=== PATIENT | male | born 1945 | race Caucasian/White ===

== ENCOUNTER → 2016-07-29 | Outpatient (REF) | payer MEDICARE, BC, OTHER ==
[2016-07-29 19:31] LABS: BASO # 0.1 K/mm3 (0.0-0.2); BASO % 1.6 % (0.0-1.0); EOS # 0.2 K/mm3 (0.0-0.50); EOS % 2.3 % (0.0-3.0); LARGE UNSTAINED CELL # 0.3 K/mm3 (0.0-0.4); LARGE UNSTAINED CELL % 4.2 % (0.0-4.0); LYMPH # 1.9 K/mm3 (1.5-4.5); LYMPH % 25.3 % (24.0-44.0); MEAN CORPUSCULAR HEMOGLOBIN 29.9 pg (27.0-33.0); MEAN CORPUSCULAR HGB CONC 31.5 g/dl (32.0-36.5); MEAN CORPUSCULAR VOLUME 94.8 fl (80.0-96.0); MONO # 0.6 K/mm3 (0.0-0.8); MONO % 9.2 % (0.0-5.0); NEUTROPHILS # 3.7 K/mm3 (1.8-7.7); NEUTROPHILS % 57.4 % (36.0-66.0); PLATELET COUNT, AUTOMATED 252 k/mm3 (150-450); RED CELL DISTRIBUTION WIDTH 14.6 % (11.5-14.5); WHITE BLOOD COUNT 6.5 K/mm3 (4.0-10.0)
[2016-07-29 19:53] LABS: CALCIUM LEVEL 8.9 MG/DL (8.8-10.2); CREATININE FOR GFR 1.3 MG/DL (0.70-1.30); GLOMERULAR FILTRATION RATE 58.1 (>42); MAGNESIUM LEVEL 2.2 MG/DL (1.8-2.4); POTASSIUM SERUM 4.5 MEQ/L (3.5-5.1); URIC ACID 4.7 MG/DL (3.5-7.2)
== END ==
LOC: M SFHCPLAZ 15:29
PROVIDERS: ATTEND Family Medicine
DX: N18.2 Chronic kidney disease, stage 2 (mild) (principal); R35.0 Frequency of micturition; E79.0 Hyperuricemia without signs of inflammatory arthritis and tophaceous disease; Z94.1 Heart transplant status

== ENCOUNTER → 2016-07-29 | Outpatient (CLI) | payer MEDICARE, BC, OTHER ==
--- NOTE | 2016-07-29 17:09 | REP ---
CHEST, TWO VIEWS: Two views of the chest are performed. There are no prior studies for comparison. There is mild cardiomegaly. There is mild bibasilar fibrotic change. No consolidating infiltrate is seen. There is mild calcification of the thoracic aorta. The mediastinal silhouette is unremarkable. Multiple sternal wires are preset. There is a left dual lead pacemaker present. There is metallic hardware in the lower cervical spine which is partially visualized. There are mild degenerative changes of the spine. IMPRESSION: Mild cardiomegaly and chronic lung findings. No evidence of acute pulmonary disease. Signed by Enzo Benson MD 07/30/2016 02:00 P
== END ==
LOC: M RAD 16:24
DX: E79.0 Hyperuricemia without signs of inflammatory arthritis and tophaceous disease (principal); M13.0 Polyarthritis, unspecified; N18.2 Chronic kidney disease, stage 2 (mild); R35.0 Frequency of micturition; Z94.1 Heart transplant status
CPT/HCPCS: 36415; 71020; 80048; 80061; 80195; 80197; 81001; 82043; 83735; 84550; 85025; 87497; 93005; G0103; G0463

== ENCOUNTER → 2016-08-26 | Outpatient (REF) | payer MEDICARE, BC, OTHER | LOC: M SFHCPLAZ 08:46 | PROVIDERS: ATTEND Family Medicine | DX: M13.0 Polyarthritis, unspecified (principal) ==

== ENCOUNTER → 2016-08-26 | Outpatient (CLI) | payer MEDICARE, BC, OTHER ==
--- NOTE | 2016-08-26 10:28 | REP ---
LEFT HAND, TWO VIEWS: HISTORY: Thumb pain. There is no acute fracture or dislocation. There is narrowing of the first carpometacarpal joint space with associated sclerosis. There is narrowing of the intermediate and distal interphalangeal joint spaces. IMPRESSION: Degenerative change as described above. Signed by Junior Barton MD 08/26/2016 10:45 A
--- NOTE | 2016-08-26 10:38 | REP ---
LEFT ANKLE, TWO VIEWS: HISTORY: Pain There are old healed fractures of the distal tibia and fibula. There is no acute fracture or dislocation. There is narrowing of the joint space with associated sclerosis. A calcified density is present adjacent to the medial malleolus. This represents ligamentous or tendon calcification or an old avulsion fracture fragment. IMPRESSION: Degenerative change as described above. Signed by Junior Barton MD 08/26/2016 10:46 A
== END ==
LOC: M RAD 09:39
PROVIDERS: ATTEND Family Medicine
DX: M19.072 Primary osteoarthritis, left ankle and foot (principal); M18.12 Unilateral primary osteoarthritis of first carpometacarpal joint, left hand
CPT/HCPCS: 36415; 73120; 73600; 85652; 86140; 86431; G0463

== ENCOUNTER → 2017-01-13 | Outpatient (REF) | payer MEDICARE, BC, OTHER | LOC: M SFHCPLAZ 08:35 | PROVIDERS: ATTEND Family Medicine | DX: E78.2 Mixed hyperlipidemia (principal) | CPT/HCPCS: 80061; G0463 ==

== ENCOUNTER → 2017-10-28 | Outpatient (REF) | payer MEDICARE, BC, OTHER ==
[2017-10-28 11:47] LABS: NT-PRO BNP 173 PG/ML (<125)
== END ==
LOC: M SFHCPLAZ 08:43
DX: R60.0 Localized edema (principal)
CPT/HCPCS: 84443

== ENCOUNTER → 2017-12-22 | Outpatient (REF) | payer MEDICARE, BC, OTHER ==
[2017-12-22 13:27] LABS: ALBUMIN 3.8 GM/DL (3.2-5.2); ALBUMIN/GLOBULIN RATIO 1.12 (1.00-1.93); ALKALINE PHOSPHATASE 74 U/L (45-117); ALT/SGPT 28 U/L (12-78); ANION GAP 8 MEQ/L (8-16); AST/SGOT 39 U/L (7-37); BILIRUBIN,TOTAL 0.4 MG/DL (0.2-1.0); BLOOD UREA NITROGEN 29 MG/DL (7-18); CALCIUM LEVEL 8.5 MG/DL (8.8-10.2); CARBON DIOXIDE LEVEL 27 MEQ/L (21-32); CHLORIDE LEVEL 110 MEQ/L (98-107); CHOLESTEROL LEVEL 172 MG/DL (<200); CREATININE FOR GFR 1.56 MG/DL (0.70-1.30); GLOMERULAR FILTRATION RATE 46.9 (>42); GLUCOSE, FASTING 92 MG/DL (70-100); HDL CHOLESTEROL 63 MG/DL (>40); MAGNESIUM LEVEL 2.2 MG/DL (1.8-2.4); NON-HDL-C 109 MG/DL; POTASSIUM SERUM 4.9 MEQ/L (3.5-5.1); SODIUM LEVEL 145 MEQ/L (136-145); TOTAL PROTEIN 7.2 GM/DL (6.4-8.2); TRIGLYCERIDES LEVEL 65 MG/DL (<150)
[2017-12-22 13:30] LABS: BASO % 0.5 % (0.0-1.0); EOS # 0.2 10^3/uL (0.0-0.50); EOS % 2.9 % (0.0-3.0); HEMATOCRIT 40.7 % (42.0-52.0); HEMOGLOBIN 12.7 g/dl (13.5-17.5); IMMATURE GRANULOCYTE % 0.3 % (0-3.0); LYMPH # 1.8 10^3/uL (1.5-4.5); LYMPH % 22.9 % (24.0-44.0); MEAN CORPUSCULAR HEMOGLOBIN 29.3 pg (27.0-33.0); MEAN CORPUSCULAR HGB CONC 31.2 g/dl (32.0-36.5); MEAN CORPUSCULAR VOLUME 93.8 fl (80.0-96.0); MONO # 1.1 10^3/uL (0.0-0.8); MONO % 14.3 % (0.0-5.0); NEUTROPHILS # 4.5 10^3/uL (1.8-7.7); NEUTROPHILS % 59.1 % (36.0-66.0); PLATELET COUNT, AUTOMATED 293 10^3/uL (150-450); RED BLOOD COUNT 4.34 10^6/uL (4.30-6.10); RED CELL DISTRIBUTION WIDTH 13.2 % (11.5-14.5); WHITE BLOOD COUNT 7.7 10^3/uL (4.0-10.0)
[2017-12-24 14:47] LABS: CMV QUANT DNA PCR, URINE Negative copies/mL (Negative); FK 506 (TACROLIMUS) LABCORP 3.2 ng/mL (2.0-20.0)
== END ==
LOC: M SFHCPLAZ 08:48
DX: Z94.1 Heart transplant status (principal); R60.0 Localized edema; R25.2 Cramp and spasm; Z79.899 Other long term (current) drug therapy
CPT/HCPCS: 83735

== ENCOUNTER → 2017-12-30 | Outpatient (CLI) | payer MEDICARE, BC, OTHER | LOC: M RAD 07:20 | DX: R60.0 Localized edema (principal) | CPT/HCPCS: 93970 ==

== ENCOUNTER 2018-01-13 08:45 | Outpatient (RCR) | payer MEDICARE, BC, OTHER | END 2018-01-27 | LOC: M PT 08:45 | DX: Z51.89 Encounter for other specified aftercare (principal); I87.2 Venous insufficiency (chronic) (peripheral) | CPT/HCPCS: 97163 ==

== ENCOUNTER → 2018-01-14 | Outpatient (REF) | payer MEDICARE, BC, OTHER ==
[2018-01-14 19:30] LABS: RETIC HEMOGLOBIN EQUIVALENT 32.8 pg (24-36); RETICULOCYTE # 51.8 10^9/L (17-77); RETICULOCYTE % 1.2 % (0.5-1.5)
[2018-01-14 19:48] LABS: APPEARANCE, URINE CLEAR (CLEAR); BACTERIA, URINE AUTO NEGATIVE (NEGATIVE); BILIRUBIN, URINE AUTO NEGATIVE (NEGATIVE); BLOOD, URINE BLOOD NEGATIVE (NEGATIVE); COLOR, URINE STRAW (YELLOW); GLUCOSE, URINE (UA) AUTO NEGATIVE (NEGATIVE); KETONE, URINE AUTO NEGATIVE (NEGATIVE); LEUKOCYTE ESTERASE, URINE AUTO NEGATIVE (NEGATIVE); MUCUS, URINE SMALL (NEGATIVE); NITRITE, URINE AUTO NEGATIVE (NEGATIVE); PROTEIN, URINE AUTO NEGATIVE (NEGATIVE); RBC, URINE AUTO 1 /HPF (0-3); SPECIFIC GRAVITY URINE AUTO 1.006 (1.002-1.035); SQUAMOUS EPITHELIAL CELL UR AU 0 /HPF (0-6); UROBILINOGEN, URINE AUTO 0.2 mg/dL (0.0-2.0); WBC, URINE AUTO 0 /HPF (0-3)
[2018-01-14 19:54] LABS: FERRITIN 110 NG/ML (26-388); IRON (FE) 74 UG/DL (65-175); PERCENT SATURATION 29.7 % (19.7-50.0); TOTAL IRON BINDING CAPACITY 249 UG/DL (250-450)
[2018-01-14 19:54] LABS: ALBUMIN 3.9 GM/DL (3.2-5.2)
[2018-01-16 09:02] LABS: TRANSFERRIN 195 mg/dL (200-370)
== END ==
LOC: M SFHCPLAZ 15:40
DX: R60.0 Localized edema (principal); D64.9 Anemia, unspecified
CPT/HCPCS: 82040

== ENCOUNTER → 2018-02-10 | Outpatient (REF) | payer MEDICARE, BC, OTHER ==
[2018-02-10 13:38] LABS: D-DIMER QUANT 1174.1 ng/ml (<500)
[2018-02-10 13:49] LABS: ANION GAP 7 MEQ/L (8-16); BLOOD UREA NITROGEN 28 MG/DL (7-18); C REACTIVE PROTEIN QUANTITATIV 0.45 MG/DL (0.00-0.30); CALCIUM LEVEL 9.1 MG/DL (8.8-10.2); CARBON DIOXIDE LEVEL 29 MEQ/L (21-32); CHLORIDE LEVEL 106 MEQ/L (98-107); CREATININE FOR GFR 1.42 MG/DL (0.70-1.30); GLOMERULAR FILTRATION RATE 52.3 (>42); GLUCOSE, FASTING 91 MG/DL (70-100); POTASSIUM SERUM 4.3 MEQ/L (3.5-5.1); SODIUM LEVEL 142 MEQ/L (136-145)
[2018-02-10 14:28] LABS: ERYTHROCYTE SEDIMENTATION RATE 22 mm/hr (0-20)
== END ==
LOC: M SFHCPLAZ 11:32
DX: M13.0 Polyarthritis, unspecified (principal); R60.0 Localized edema
CPT/HCPCS: 80048

== ENCOUNTER → 2018-02-11 | Outpatient (CLI) | payer MEDICARE, BC, OTHER | LOC: M RAD 12:06 | DX: R60.0 Localized edema (principal) | CPT/HCPCS: 93970 ==

== ENCOUNTER → 2018-04-15 | Outpatient (REF) | payer MEDICARE, BC, OTHER ==
[2018-04-15 16:29] LABS: ANION GAP 2 MEQ/L (8-16); BLOOD UREA NITROGEN 19 MG/DL (7-18); CALCIUM LEVEL 9.1 MG/DL (8.8-10.2); CARBON DIOXIDE LEVEL 35 MEQ/L (21-32); CHLORIDE LEVEL 107 MEQ/L (98-107); CREATININE FOR GFR 1.35 MG/DL (0.70-1.30); GLOMERULAR FILTRATION RATE 55.5 (>42); GLUCOSE, FASTING 86 MG/DL (70-100); POTASSIUM SERUM 4.6 MEQ/L (3.5-5.1); SODIUM LEVEL 144 MEQ/L (136-145)
== END ==
LOC: M SFHCPLAZ 12:40
DX: R60.0 Localized edema (principal)
CPT/HCPCS: 80048

== ENCOUNTER → 2018-04-15 | Outpatient (CLI) | payer MEDICARE, BC, OTHER | LOC: M RAD 13:23 | DX: R51 Headache (principal) | CPT/HCPCS: 72040 ==

== ENCOUNTER → 2018-05-11 | Outpatient (REF) | payer MEDICARE, BC, OTHER | LOC: M SFHCLERA 15:23 | DX: M13.0 Polyarthritis, unspecified (principal); M15.0 Primary generalized (osteo)arthritis; Z53.8 Procedure and treatment not carried out for other reasons ==

== ENCOUNTER → 2018-05-13 | Outpatient (REF) | payer MEDICARE, BC, OTHER ==
[2018-05-13 16:47] LABS: C REACTIVE PROTEIN QUANTITATIV 1.13 MG/DL (0.00-0.30)
[2018-05-13 16:47] LABS: URIC ACID 4.5 MG/DL (3.5-7.2)
[2018-05-13 16:49] LABS: BASO % 0.4 % (0.0-1.0); EOS # 0.2 10^3/uL (0.0-0.50); EOS % 2.3 % (0.0-3.0); HEMATOCRIT 44.1 % (42.0-52.0); HEMOGLOBIN 13.8 g/dl (13.5-17.5); IMMATURE GRANULOCYTE % 0.3 % (0-3.0); LYMPH % 27.4 % (24.0-44.0); MEAN CORPUSCULAR HEMOGLOBIN 29.9 pg (27.0-33.0); MEAN CORPUSCULAR HGB CONC 31.3 g/dl (32.0-36.5); MEAN CORPUSCULAR VOLUME 95.7 fl (80.0-96.0); MONO # 0.7 10^3/uL (0.0-0.8); MONO % 9.3 % (0.0-5.0); NEUTROPHILS # 4.4 10^3/uL (1.8-7.7); NEUTROPHILS % 60.3 % (36.0-66.0); PLATELET COUNT, AUTOMATED 238 10^3/uL (150-450); RED BLOOD COUNT 4.61 10^6/uL (4.30-6.10); RED CELL DISTRIBUTION WIDTH 14.6 % (11.5-14.5); WHITE BLOOD COUNT 7.3 10^3/uL (4.0-10.0)
[2018-05-13 17:21] LABS: APPEARANCE, URINE HAZY (CLEAR); BACTERIA, URINE AUTO NEGATIVE (NEGATIVE); BILIRUBIN, URINE AUTO NEGATIVE (NEGATIVE); BLOOD, URINE BLOOD NEGATIVE (NEGATIVE); COLOR, URINE YELLOW (YELLOW); GLUCOSE, URINE (UA) AUTO NEGATIVE (NEGATIVE); KETONE, URINE AUTO NEGATIVE (NEGATIVE); LEUKOCYTE ESTERASE, URINE AUTO NEGATIVE (NEGATIVE); MUCUS, URINE SMALL (NEGATIVE); NITRITE, URINE AUTO NEGATIVE (NEGATIVE); PROTEIN, URINE AUTO NEGATIVE (NEGATIVE); RBC, URINE AUTO 3 /HPF (0-3); SQUAMOUS EPITHELIAL CELL UR AU 1 /HPF (0-6); UROBILINOGEN, URINE AUTO 0.2 mg/dL (0.0-2.0); WBC, URINE AUTO 2 /HPF (0-3)
[2018-05-13 17:57] LABS: ERYTHROCYTE SEDIMENTATION RATE 9 mm/hr (0-20)
[2018-05-13 18:28] LABS: TOTAL PROTEIN,RANDOM URINE 42.3 MG/DL (0.0-12.0)
[2018-05-16 00:29] LABS: ANA (HEP2) Negative (.); ANTI DOUBLE STRAND-DNA AB 1 IU/mL (0-9); RNP ANTIBODY < 0.2 AI (0.0-0.9); SMITHS ANTIBODY < 0.2 AI (0.0-0.9); SSA SJOGRENS A <0.2 AI (0.0-0.9); SSB SJOGRENS B <0.2 AI (0.0-0.9)
[2018-05-16 00:29] LABS: CYCLIC CITRULLINATED PEPTIDE 10 units (0-19)
== END ==
LOC: M SFHCLERA 09:56 → M SFHCCLAY 09:59
DX: M13.0 Polyarthritis, unspecified (principal); M15.0 Primary generalized (osteo)arthritis

== ENCOUNTER → 2018-05-13 | Outpatient (CLI) | payer MEDICARE, BC, OTHER | LOC: M CLY 10:08 | DX: M19.041 Primary osteoarthritis, right hand (principal); M17.0 Bilateral primary osteoarthritis of knee; Z79.899 Other long term (current) drug therapy | CPT/HCPCS: 84550 ==

== ENCOUNTER → 2018-07-30 | Outpatient (REF) | payer MEDICARE, BC, OTHER ==
[2018-07-30 11:56] LABS: BLOOD UREA NITROGEN 34 MG/DL (7-18); C REACTIVE PROTEIN QUANTITATIV < 0.30 MG/DL (0.00-0.30); CALCIUM LEVEL 8.8 MG/DL (8.8-10.2); CARBON DIOXIDE LEVEL 30 MEQ/L (21-32); CHLORIDE LEVEL 106 MEQ/L (98-107); CHOLESTEROL LEVEL 190 MG/DL (<200); CHOLESTEROL RISK RATIO 3.584 (<5); CREATININE FOR GFR 1.93 MG/DL (0.70-1.30); GLOMERULAR FILTRATION RATE 36.6 (>42); GLUCOSE, FASTING 93 MG/DL (70-100); HDL CHOLESTEROL 53 MG/DL (>40); LDL CHOLESTEROL 112 MG/DL (<100); NON-HDL-C 137 MG/DL; POTASSIUM SERUM 4.1 MEQ/L (3.5-5.1); SODIUM LEVEL 141 MEQ/L (136-145); TRIGLYCERIDES LEVEL 123 MG/DL (<150); URIC ACID 5.5 MG/DL (3.5-7.2)
== END ==
LOC: M SFHCPLAZ 09:57
PROVIDERS: ATTEND Family Medicine
DX: M13.0 Polyarthritis, unspecified (principal); E78.2 Mixed hyperlipidemia; I10 Essential (primary) hypertension; M1A.09X0 Idiopathic chronic gout, multiple sites, without tophus (tophi)
CPT/HCPCS: 36415; 80048; 80061; 83520; 84550; 85652; 86140; G0463

== ENCOUNTER → 2018-10-06 | Outpatient (REF) | payer MEDICARE, BC, OTHER ==
[2018-10-06 15:57] LABS: BASO % 0.6 % (0.0-1.0); EOS # 0.2 10^3/uL (0.0-0.50); EOS % 2.6 % (0.0-3.0); HEMATOCRIT 40.1 % (42.0-52.0); HEMOGLOBIN 12.6 g/dl (13.5-17.5); LYMPH # 2.1 10^3/uL (1.5-4.5); LYMPH % 31.7 % (24.0-44.0); MEAN CORPUSCULAR HEMOGLOBIN 29.4 pg (27.0-33.0); MEAN CORPUSCULAR HGB CONC 31.4 g/dl (32.0-36.5); MEAN CORPUSCULAR VOLUME 93.7 fl (80.0-96.0); MONO % 14.5 % (0.0-5.0); NEUTROPHILS # 3.3 10^3/uL (1.8-7.7); NEUTROPHILS % 50.4 % (36.0-66.0); PLATELET COUNT, AUTOMATED 282 10^3/uL (150-450); RED BLOOD COUNT 4.28 10^6/uL (4.30-6.10); WHITE BLOOD COUNT 6.6 10^3/uL (4.0-10.0)
[2018-10-06 16:19] LABS: ERYTHROCYTE SEDIMENTATION RATE 8 mm/hr (0-20)
[2018-10-06 16:20] LABS: ALBUMIN 3.7 GM/DL (3.2-5.2); ALT/SGPT 28 U/L (12-78); BILIRUBIN,TOTAL 0.4 MG/DL (0.2-1.0); BLOOD UREA NITROGEN 32 MG/DL (7-18); C REACTIVE PROTEIN QUANTITATIV < 0.30 MG/DL (0.00-0.30); CALCIUM LEVEL 8.7 MG/DL (8.8-10.2); CARBON DIOXIDE LEVEL 26 MEQ/L (21-32); CHLORIDE LEVEL 110 MEQ/L (98-107); CREATININE FOR GFR 1.74 MG/DL (0.70-1.30); GLOMERULAR FILTRATION RATE 41.3 (>42); GLUCOSE, FASTING 90 MG/DL (70-100); POTASSIUM SERUM 4.8 MEQ/L (3.5-5.1); SODIUM LEVEL 141 MEQ/L (136-145); TOTAL PROTEIN 6.5 GM/DL (6.4-8.2); URIC ACID 5.9 MG/DL (3.5-7.2)
== END ==
LOC: M SFHCPLAZ 14:15
PROVIDERS: ATTEND Internal Medicine Rheumatology
DX: M1A.09X0 Idiopathic chronic gout, multiple sites, without tophus (tophi) (principal)

== ENCOUNTER → 2019-01-12 | Outpatient (REF) | payer MEDICARE, BC, OTHER ==
[2019-01-12 12:54] LABS: BASO # 0.1 10^3/uL (0.0-0.2); EOS # 0.3 10^3/uL (0.0-0.50); EOS % 5.5 % (0.0-3.0); HEMATOCRIT 38.9 % (42.0-52.0); HEMOGLOBIN 12.4 g/dl (13.5-17.5); LYMPH # 2.1 10^3/uL (1.5-4.5); LYMPH % 35.8 % (24.0-44.0); MEAN CORPUSCULAR HEMOGLOBIN 30.2 pg (27.0-33.0); MEAN CORPUSCULAR HGB CONC 31.9 g/dl (32.0-36.5); MEAN CORPUSCULAR VOLUME 94.9 fl (80.0-96.0); MONO # 0.8 10^3/uL (0.0-0.8); MONO % 13.1 % (0.0-5.0); NEUTROPHILS # 2.6 10^3/uL (1.8-7.7); NEUTROPHILS % 44.1 % (36.0-66.0); PLATELET COUNT, AUTOMATED 312 10^3/uL (150-450)
[2019-01-12 13:32] LABS: CALCIUM LEVEL 9.1 MG/DL (8.8-10.2); CHOLESTEROL RISK RATIO 3.862 (<5); CREATININE FOR GFR 1.37 MG/DL (0.70-1.30); FREE T4 1.16 NG/DL (0.76-1.46); GLOMERULAR FILTRATION RATE 54.4 (>42); POTASSIUM SERUM 4.5 MEQ/L (3.5-5.1); THYROID STIMULATING HORMONE 1.54 uIU/ML (0.358-3.740); TOTAL 25(OH) VITAMIN D 30.8 NG/ML (30.0-100.0); URIC ACID 6.6 MG/DL (3.5-7.2)
== END ==
LOC: M SFHCPLAZ 08:56
PROVIDERS: ATTEND Family Medicine
DX: R53.83 Other fatigue (principal); E78.2 Mixed hyperlipidemia; I10 Essential (primary) hypertension; M1A.09X0 Idiopathic chronic gout, multiple sites, without tophus (tophi); Z13.1 Encounter for screening for diabetes mellitus; Z12.5 Encounter for screening for malignant neoplasm of prostate; M13.0 Polyarthritis, unspecified
CPT/HCPCS: 36415; 80048; 80061; 82306; 82607; 83036; 84439; 84443; 84550; 85025; G0103

== ENCOUNTER → 2019-02-16 | Outpatient (REF) | payer MEDICARE, BC, OTHER ==
[2019-02-16 17:05] LABS: HCG, SERUM QUANTITATIVE < 1.0 MIU/ML
[2019-02-16 17:11] LABS: LUTEINIZING HORMONE 34.9 mIU/mL (3.1-34.6); TESTOSTERONE 223 NG/DL (241-827)
[2019-02-16 17:12] LABS: ESTRADIOL < 19.0 PG/ML (<39.8); FOLLICLE STIMULATING HORMONE 65.2 mIU/mL (1.4-18.1)
== END ==
LOC: M SFHCCLAY 11:01
PROVIDERS: ATTEND Family Medicine
DX: N64.4 Mastodynia (principal)

== ENCOUNTER → 2019-02-16 | Outpatient (REF) | payer MEDICARE, BC, OTHER ==
[2019-02-16 17:27] LABS: ALBUMIN 3.8 GM/DL (3.2-5.2); BILIRUBIN,TOTAL 0.4 MG/DL (0.2-1.0); CALCIUM LEVEL 8.9 MG/DL (8.8-10.2); CREATININE FOR GFR 1.52 MG/DL (0.70-1.30); GLOMERULAR FILTRATION RATE 48.2 (>42); MAGNESIUM LEVEL 2.3 MG/DL (1.8-2.4); POTASSIUM SERUM 4.4 MEQ/L (3.5-5.1); TOTAL PROTEIN 6.8 GM/DL (6.4-8.2)
[2019-02-16 17:28] LABS: BASO % 0.6 % (0.0-1.0); EOS # 0.3 10^3/uL (0.0-0.50); EOS % 3.9 % (0.0-3.0); HEMATOCRIT 39.5 % (42.0-52.0); HEMOGLOBIN 12.6 g/dl (13.5-17.5); LYMPH # 1.7 10^3/uL (1.5-4.5); MEAN CORPUSCULAR HEMOGLOBIN 30.6 pg (27.0-33.0); MEAN CORPUSCULAR HGB CONC 31.9 g/dl (32.0-36.5); MEAN CORPUSCULAR VOLUME 95.9 fl (80.0-96.0); MONO # 0.9 10^3/uL (0.0-0.8); MONO % 12.1 % (0.0-5.0); NEUTROPHILS # 4.2 10^3/uL (1.8-7.7); NEUTROPHILS % 59.1 % (36.0-66.0); PLATELET COUNT, AUTOMATED 269 10^3/uL (150-450); RED BLOOD COUNT 4.12 10^6/uL (4.30-6.10); WHITE BLOOD COUNT 7.2 10^3/uL (4.0-10.0)
[2019-02-21 00:06] LABS: CMV QUANT DNA PCR (PLASMA) Negative (Negative); SIROLIMUS (RAPAMUNE) LABCORP 8.3 ng/mL (3.0-20.0)
== END ==
LOC: M LABDRAWC 16:32
PROVIDERS: ATTEND Nurse Practitioner Adult Health
DX: T86.298 Other complications of heart transplant (principal); T86.23 Heart transplant infection; Z48.21 Encounter for aftercare following heart transplant; N64.4 Mastodynia

== ENCOUNTER → 2019-05-04 | Outpatient (REF) | payer MEDICARE, BC, OTHER | LOC: M LABDRAWC 11:04 | PROVIDERS: ATTEND Nurse Practitioner Adult Health | DX: Z94.1 Heart transplant status (principal); Z29.8 Encounter for other specified prophylactic measures ==

== ENCOUNTER → 2019-05-10 | Outpatient (REF) | payer MEDICARE, BC, OTHER | LOC: M LAB REF 18:49 | PROVIDERS: ATTEND Nurse Practitioner Adult Health | DX: Z29.8 Encounter for other specified prophylactic measures (principal); Z94.1 Heart transplant status ==

== ENCOUNTER → 2019-08-24 | Outpatient (REF) | payer MEDICARE, BC, OTHER ==
[2019-08-24 13:08] LABS: CALCIUM LEVEL 9.8 MG/DL (8.8-10.2); CREATININE FOR GFR 1.78 MG/DL (0.70-1.30); GLOMERULAR FILTRATION RATE 40.1 (>42); POTASSIUM SERUM 3.9 MEQ/L (3.5-5.1)
[2019-08-24 13:26] LABS: HEMOGLOBIN A1c 6.4 %
== END ==
LOC: M SFHCPLAZ 10:04
PROVIDERS: ATTEND Family Medicine
DX: I10 Essential (primary) hypertension (principal); R73.03 Prediabetes
CPT/HCPCS: 36415; 80048; 83036; G0463

== ENCOUNTER → 2020-01-25 | Outpatient (REF) | payer MEDICARE, BC, OTHER ==
[2020-03-31 12:14] LABS: SIROLIMUS (RAPAMUNE) LABCORP SEE SEPARATE REPORT
[2020-04-18 15:12] LABS: TRIGLYCERIDES LEVEL SEE SEPARATE REPORT MG/DL
== END ==
LOC: M LABDRAWC 17:04
PROVIDERS: ATTEND Family Medicine
DX: E78.2 Mixed hyperlipidemia (principal); Z51.81 Encounter for therapeutic drug level monitoring; R73.03 Prediabetes; I10 Essential (primary) hypertension

== ENCOUNTER → 2020-03-15 | Outpatient (REF) | payer MEDICARE, BC, OTHER | LOC: M LAB REF 19:16 | PROVIDERS: ATTEND Dermatology | DX: D04.4 Carcinoma in situ of skin of scalp and neck (principal) | CPT/HCPCS: 11102; 17000; 88305; 96574; J7308 ==

== ENCOUNTER → 2020-03-21 | Outpatient (REF) | payer MEDICARE, BC, OTHER ==
[2020-03-21 13:01] LABS: APPEARANCE, URINE CLEAR (CLEAR); BACTERIA, URINE AUTO NEGATIVE (NEGATIVE); BILIRUBIN, URINE AUTO NEGATIVE (NEGATIVE); BLOOD, URINE BLOOD NEGATIVE (NEGATIVE); COLOR, URINE YELLOW (YELLOW); GLUCOSE, URINE (UA) AUTO NEGATIVE (NEGATIVE); KETONE, URINE AUTO NEGATIVE (NEGATIVE); LEUKOCYTE ESTERASE, URINE AUTO NEGATIVE (NEGATIVE); NITRITE, URINE AUTO NEGATIVE (NEGATIVE); PROTEIN, URINE AUTO NEGATIVE (NEGATIVE); RBC, URINE AUTO 1 /HPF (0-3); SPECIFIC GRAVITY URINE AUTO 1.017 (1.002-1.035); SQUAMOUS EPITHELIAL CELL UR AU 0 /HPF (0-6); UROBILINOGEN, URINE AUTO 0.2 mg/dL (0.0-2.0); WBC, URINE AUTO 1 /HPF (0-3)
[2020-03-21 13:03] LABS: BASO # 0.1 10^3/uL (0.0-0.2); BASO % 0.9 % (0.0-1.0); EOS # 0.3 10^3/uL (0.0-0.5); EOS % 5.3 % (0.0-3.0); HEMATOCRIT 43.7 % (42.0-52.0); HEMOGLOBIN 13.7 g/dl (13.5-17.5); LYMPH # 1.9 10^3/uL (1.5-5.0); LYMPH % 28.7 % (24.0-44.0); MEAN CORPUSCULAR HEMOGLOBIN 29.8 pg (27.0-33.0); MEAN CORPUSCULAR HGB CONC 31.4 g/dl (32.0-36.5); NEUTROPHILS # 3.2 10^3/uL (1.5-8.5); NEUTROPHILS % 49.8 % (36.0-66.0); PLATELET COUNT, AUTOMATED 317 10^3/uL (150-450); WHITE BLOOD COUNT 6.5 10^3/uL (4.0-10.0)
[2020-03-21 13:12] LABS: ALBUMIN 3.7 GM/DL (3.2-5.2); BILIRUBIN,TOTAL 0.4 MG/DL (0.2-1.0); CALCIUM LEVEL 9.4 MG/DL (8.8-10.2); CHOLESTEROL RISK RATIO 4.226 (<5); CREATININE FOR GFR 1.47 MG/DL (0.70-1.30); MAGNESIUM LEVEL 2.1 MG/DL (1.8-2.4); POTASSIUM SERUM 4.4 MEQ/L (3.5-5.1); TOTAL PROTEIN 7.2 GM/DL (6.4-8.2)
[2020-03-21 13:43] LABS: MALB URINE SIEMENS 7.7 MG/L; MAU/CREAT RATIO 6.3 MCG/MG (0.0-30.0)
[2020-03-24 10:09] LABS: SIROLIMUS (RAPAMUNE) LABCORP 4.1 ng/mL (3.0-20.0)
[2020-03-24 13:12] LABS: CMV QUANT DNA PCR (PLASMA) Negative (Negative)
== END ==
LOC: M LABDRAWC 11:00
PROVIDERS: ATTEND Nurse Practitioner
DX: Z94.1 Heart transplant status (principal); I10 Essential (primary) hypertension

== ENCOUNTER → 2020-06-13 | Outpatient (CLI) | payer MEDICARE, BC, OTHER ==
--- NOTE | 2020-06-13 10:36 | DEXAMM ---
INDICATION: Z79.52 CURRENT CHRONIC USE OF SYSTEMIC STEROIDS. COMPARISON: None. TECHNIQUE: Bone density was measured using dual-energy x-ray absorptionmetry (DEXA). FINDINGS: AP SPINE L1-L4 BMD 1.564 g/cm2 Young Adult T-Score 3.0 Age Matched Z-Score 3.2. LT FEMUR, TOTAL BMD 0.900 g/cm2 Young Adult T-Score -0.9 Age Matched Z-Score -0.5. LT NECK BMD 0.843 g/cm2 Young Adult T-Score -1.4 Age Matched Z-Score -0.4. RT FEMUR, TOTAL BMD 0.877 g/cm2 Young Adult T-Score -1.0 Age Matched Z-Score -0.7. RT NECK BMD 0.791 g/cm2 Young Adult T-Score -1.8 Age Matched Z-Score -0.8. IMPRESSION: There is normal bone density of the spine. There is low bone density of the left hip. There is low bone density of the right hip. FOLLOW-UP: Recommendation for the next bone density exam: 2 years. <Electronically signed by Vahid Plaza > 06/13/20 [id number]
== END ==
LOC: M WHC 09:04
PROVIDERS: ATTEND Family Medicine
DX: M85.851 Other specified disorders of bone density and structure, right thigh (principal); M85.852 Other specified disorders of bone density and structure, left thigh; Z79.52 Long term (current) use of systemic steroids

== ENCOUNTER → 2020-06-20 | Outpatient (CLI) | payer MEDICARE, BC, OTHER ==
--- NOTE | 2020-06-20 14:02 | REP ---
INDICATION: MEL LEG PAIN COMPARISON: 12/30/2017. TECHNIQUE: Real time compression and duplex Doppler interrogation of the bilateral lower extremity deep venous system is performed. Evaluation for venous reflux is performed. FINDINGS: Bilaterally, the common femoral, superficial femoral and popliteal veins are fully compressible with transducer pressure and demonstrate normal spontaneous and phasic flow, without evidence of deep venous thrombosis. Patient states history of stripping of greater saphenous vein approximately 10 years ago. There is reflux throughout the deep vein system of the right lower extremity. There is no reflux in the lesser saphenous vein, which measures approximately 2 mm in diameter. On the left there is diffuse reflux throughout the deep vein system. There is an anterior accessory greater saphenous vein present with no reflux. There is reflux in the greater saphenous vein at the saphenofemoral junction with a duration of 6.6 seconds, AP diameter 5 mm, in the mid thigh for duration of 4.2 seconds with AP diameter 5 mm, as well as at the level of the knee with a duration of 5.1 seconds and AP diameter 4 mm. There is no reflux in the lesser saphenous vein which measures 2 mm. Two collateral venous structures are seen communicating with the mid greater saphenous vein in the thigh it. IMPRESSION: No evidence of deep venous thrombosis of the bilateral lower extremity femoral popliteal venous system. Bilateral deep vein reflux. There is left greater saphenous vein reflux as discussed above. <Electronically signed by Enzo Benson > 06/20/20 [id number]
--- NOTE | 2020-06-20 14:06 | REP ---
INDICATION: MEL LEG PAIN COMPARISON: None. TECHNIQUE: Real time benson scale and color Doppler evaluation of the bilateral lower extremity arterial vasculature using linear high frequency transducer. FINDINGS: Benson scale and color images demonstrate moderate to significant amounts of atheromatous plaquing with areas of minimal narrowing but no focal stenosis identified. Doppler interrogation to the right lower extremity demonstrates triphasic wave patterns with increased 2:1 velocity between the proximal and distal posterior tibial artery. Doppler interrogation to the left lower extremity demonstrates triphasic wave patterns with areas of monophasic wave patterns through the proximal anterior tibial artery, tibioperoneal trunk, and distal anterior tibial artery. Increased velocity through the left posterior tibial artery is appreciated without obvious focal area of stenosis. Peak systolic velocities (cm/sec) Common femoral artery: Right 87.7; Left 100.2 Profunda femoris: Right 46.3; Left 63.7 SFA (proximal): Right 76.4; Left 70.6 SFA (mid): Right 90.8; Left 80.5 SFA (distal): Right 112.5; Left 109.1 Popliteal artery: Right 81.0; Left 90.6 AMOL (prox.): Right 69.4; Left 68.3 Tibioperoneal trunk: Right 56.5; Left 71.7 [employer] (prox.): Right 63.0; Left 145.4 [employer] (distal): Right 125.1; Left 139.6 AMOL (distal): Right 95.2; Left 85.8 IMPRESSION: Moderate to significant areas of atheromatous plaquing primarily noted in the calf and distal vessels with areas of increased velocity but no discrete focal stenosis identified. <Electronically signed by Rolando Aguirre > 06/20/20 [id number]
== END ==
LOC: M RAD 09:24
PROVIDERS: ATTEND Physician Assistant
DX: I87.2 Venous insufficiency (chronic) (peripheral) (principal); I70.213 Atherosclerosis of native arteries of extremities with intermittent claudication, bilateral legs

== ENCOUNTER → 2020-06-27 | Outpatient (REF) | payer MEDICARE, BC, OTHER ==
[2020-06-27 12:17] LABS: HEMOGLOBIN A1c 5.9 %
[2020-06-27 12:30] LABS: CALCIUM LEVEL 8.8 MG/DL (8.8-10.2); CHOLESTEROL RISK RATIO 2.431 (<5); CREATININE FOR GFR 1.76 MG/DL (0.70-1.30); GLOMERULAR FILTRATION RATE 40.5 (>42); POTASSIUM SERUM 4.5 MEQ/L (3.5-5.1); URIC ACID 7.6 MG/DL (3.5-7.2)
== END ==
LOC: M SFHCCLAY 08:02
PROVIDERS: ATTEND Family Medicine
DX: R73.03 Prediabetes (principal); M1A.09X0 Idiopathic chronic gout, multiple sites, without tophus (tophi); Z79.899 Other long term (current) drug therapy

== ENCOUNTER → 2020-08-17 | Outpatient (REF) | payer MEDICARE, BC, OTHER ==
[2020-08-17 12:31] LABS: HEMATOCRIT 40.8 % (42.0-52.0); HEMOGLOBIN 12.6 g/dl (13.5-17.5); MEAN CORPUSCULAR HEMOGLOBIN 29.3 pg (27.0-33.0); MEAN CORPUSCULAR HGB CONC 30.9 g/dl (32.0-36.5); MEAN CORPUSCULAR VOLUME 94.9 fl (80.0-96.0); PLATELET COUNT, AUTOMATED 265 10^3/uL (150-450); WHITE BLOOD COUNT 8.3 10^3/uL (4.0-10.0)
[2020-08-17 13:18] LABS: ALBUMIN 3.6 GM/DL (3.2-5.2); BILIRUBIN,TOTAL 0.6 MG/DL (0.2-1.0); CALCIUM LEVEL 8.9 MG/DL (8.8-10.2); CREATININE FOR GFR 1.58 MG/DL (0.70-1.30); GLOMERULAR FILTRATION RATE 45.9 (>42); MAGNESIUM LEVEL 2.1 MG/DL (1.8-2.4); POTASSIUM SERUM 4.1 MEQ/L (3.5-5.1); TOTAL PROTEIN 6.6 GM/DL (6.4-8.2)
[2020-08-22 07:19] LABS: CMV QUANT DNA PCR (PLASMA) Negative (Negative); SIROLIMUS (RAPAMUNE) LABCORP 6.4 ng/mL (3.0-20.0)
== END ==
LOC: M LABDRAWC 11:33
DX: Z94.1 Heart transplant status (principal)

== ENCOUNTER → 2020-08-28 | Outpatient (CLI) | payer MEDICARE, BC, OTHER ==
--- NOTE | 2020-08-28 11:52 | REP ---
INDICATION: CHRONIC KIDNEY DISEASE, STAGE 3B. COMPARISON: None. TECHNIQUE: Real-time sonographic evaluation of urinary bladder performed. FINDINGS: The bladder measures 9.2 x 7.8 x 5.2 cm, total volume 244 cc. Postvoid residual is 82 cc, 34% of the regional volume. With duplex Doppler evaluation ureteral jets could not be visualized. Prostate measures 3.9 x 3.6 x 4.2 cm, total volume 31 cc. No bladder wall mass is seen. No bladder calculus is seen. IMPRESSION: Postvoid residual in the urinary bladder 34% as discussed above. No bladder wall mass. No bladder calculus. Prostate volume 31 cc. <Electronically signed by Enzo Benson > 08/28/20 1140
--- NOTE | 2020-08-28 11:53 | REP ---
INDICATION: CHRONIC KIDNEY DISEASE, STAGE 3B. COMPARISON: None. TECHNIQUE: Real-time sonographic evaluation of the kidneys is performed. FINDINGS: Renal cortical echogenicity pattern is normal bilaterally and contours are smooth. There is no evidence of hydronephrosis, cyst, mass, or calculus in either kidney. The right kidney measures 9.9 x 5.0 x 4.9 cm. Left renal dimensions are 10.7 x 5.1 x 5.2 cm. The urinary bladder is unremarkable. IMPRESSION: Negative renal ultrasound. <Electronically signed by Enzo Benson > 08/28/20 1148
== END ==
LOC: M RAD 10:57
PROVIDERS: ATTEND Internal Medicine Nephrology
DX: N18.32 Chronic kidney disease, stage 3b (principal); N40.1 Benign prostatic hyperplasia with lower urinary tract symptoms

== ENCOUNTER → 2020-11-14 | Outpatient (REF) | payer MEDICARE, BC, OTHER ==
[2020-11-14 13:21] LABS: ALBUMIN 3.6 GM/DL (3.2-5.2); BILIRUBIN,TOTAL 0.4 MG/DL (0.2-1.0); CALCIUM LEVEL 8.2 MG/DL (8.8-10.2); CHOLESTEROL RISK RATIO 1.649 (<5); CREATININE FOR GFR 1.33 MG/DL (0.70-1.30); POTASSIUM SERUM 4.3 MEQ/L (3.5-5.1); TOTAL PROTEIN 6.8 GM/DL (6.4-8.2)
== END ==
LOC: M LABDRAWC 11:52 → M LAB REF 11:52
PROVIDERS: ATTEND Nurse Practitioner
DX: Z94.1 Heart transplant status (principal); I10 Essential (primary) hypertension

== ENCOUNTER → 2020-12-01 | Outpatient (REF) | payer MEDICARE, BC, OTHER | LOC: M LAB REF 17:17 | PROVIDERS: ATTEND Internal Medicine Nephrology | DX: R60.0 Localized edema (principal); Z94.1 Heart transplant status ==

== ENCOUNTER → 2020-12-07 | Outpatient (REF) | payer MEDICARE, BC, OTHER ==
[2020-12-07 11:50] LABS: HEMOGLOBIN 12.6 g/dl (13.5-17.5); MEAN CORPUSCULAR HEMOGLOBIN 29.8 pg (27.0-33.0); MEAN CORPUSCULAR HGB CONC 30.7 g/dl (32.0-36.5); MEAN CORPUSCULAR VOLUME 96.9 fl (80.0-96.0); PLATELET COUNT, AUTOMATED 233 10^3/uL (150-450); RED BLOOD COUNT 4.23 10^6/uL (4.30-6.10); WHITE BLOOD COUNT 6.6 10^3/uL (4.0-10.0)
[2020-12-07 12:35] LABS: ALBUMIN 3.6 GM/DL (3.2-5.2); BILIRUBIN,TOTAL 0.5 MG/DL (0.2-1.0); CALCIUM LEVEL 8.8 MG/DL (8.8-10.2); CREATININE FOR GFR 1.92 MG/DL (0.70-1.30); GLOMERULAR FILTRATION RATE 36.6 (>42); MAGNESIUM LEVEL 2.3 MG/DL (1.8-2.4); POTASSIUM SERUM 4.4 MEQ/L (3.5-5.1); TOTAL PROTEIN 6.7 GM/DL (6.4-8.2)
[2020-12-11 09:07] LABS: CMV QUANT DNA PCR (PLASMA) Negative (Negative); SIROLIMUS (RAPAMUNE) LABCORP 4.6 ng/mL (3.0-20.0)
== END ==
LOC: M LABDRAWC 11:13
PROVIDERS: ATTEND Nurse Practitioner Family
DX: Z94.1 Heart transplant status (principal)

== ENCOUNTER → 2020-12-07 | Outpatient (REF) | payer MEDICARE, BC, OTHER ==
[2020-12-07 11:49] LABS: BASO % 0.4 % (0.0-1.0); EOS # 0.2 10^3/uL (0.0-0.5); EOS % 2.5 % (0.0-3.0); HEMOGLOBIN 12.8 g/dl (13.5-17.5); LYMPH # 2.2 10^3/uL (1.5-5.0); LYMPH % 32.3 % (24.0-44.0); MEAN CORPUSCULAR HEMOGLOBIN 30.4 pg (27.0-33.0); MEAN CORPUSCULAR HGB CONC 31.2 g/dl (32.0-36.5); MEAN CORPUSCULAR VOLUME 97.4 fl (80.0-96.0); MONO # 0.7 10^3/uL (0.0-0.8); MONO % 10.6 % (2.0-8.0); NEUTROPHILS # 3.6 10^3/uL (1.5-8.5); NEUTROPHILS % 53.8 % (36.0-66.0); PLATELET COUNT, AUTOMATED 233 10^3/uL (150-450); RED BLOOD COUNT 4.21 10^6/uL (4.30-6.10); WHITE BLOOD COUNT 6.8 10^3/uL (4.0-10.0)
[2020-12-07 12:38] LABS: ERYTHROCYTE SEDIMENTATION RATE 7 mm/hr (0-20)
[2020-12-07 13:50] LABS: ALBUMIN 3.5 GM/DL (3.2-5.2); BILIRUBIN,TOTAL 0.4 MG/DL (0.2-1.0); C REACTIVE PROTEIN QUANTITATIV 0.3 MG/DL (0.00-0.30); CALCIUM LEVEL 8.6 MG/DL (8.8-10.2); CREATININE FOR GFR 1.91 MG/DL (0.70-1.30); GLOMERULAR FILTRATION RATE 36.9 (>42); POTASSIUM SERUM 4.3 MEQ/L (3.5-5.1); TOTAL PROTEIN 6.7 GM/DL (6.4-8.2); URIC ACID 7.2 MG/DL (3.5-7.2)
== END ==
LOC: M SFHCRHEU 08:25
PROVIDERS: ATTEND Internal Medicine Rheumatology
DX: M15.4 Erosive (osteo)arthritis (principal); M1A.09X0 Idiopathic chronic gout, multiple sites, without tophus (tophi)

== ENCOUNTER → 2020-12-07 | Outpatient (CLI) | payer MEDICARE, BC, OTHER ==
--- NOTE | 2020-12-07 09:55 | REP ---
INDICATION: EROSIVE OSTEOARTHRITIS. COMPARISON: None. TECHNIQUE: Four views each foot FINDINGS: On the right: There is advanced asymmetric joint space narrowing with subchondral sclerosis and marginal osteophytosis involving the 1st metatarsophalangeal joint. Small subchondral cysts are also suspected. More mild to moderate degenerative changes seen throughout the foot. There is no evidence of an acute fracture. There is a plantar calcaneal heel spur. On the left: Moderate asymmetric joint space narrowing is seen involving the 1st metatarsophalangeal joint with slight marginal osteophyte formation. Mild to moderate intra digital asymmetric joint space narrowing is seen throughout the left foot with moderate chronic changes seen involving the mid and hindfoot regions. There is a plantar calcaneal heel spur. There is no evidence of an acute fracture. IMPRESSION: Bilateral chronic changes as described above. <Electronically signed by Santiago Kennedy > 12/07/20 [id number]
--- NOTE | 2020-12-07 09:59 | REP ---
INDICATION: EROSIVE OSTEOARTHRITIS. COMPARISON: Right hand of 05/13/2018 the only prior TECHNIQUE: Four views bilateral FINDINGS: Right hand: Once again, there is advanced asymmetric intra digital joint space narrowing affecting the proximal interphalangeal joint of the 5th digit with advanced marginal osteophyte formation. This appears unchanged. Asymmetric intra digital joint space narrowing and marginal osteophytosis has increased affecting the DIP joints of digits 2, 3, and 5. Subchondral sclerosis is also identified and also increased involving those regions. There is marginal osteophyte formation seen involving the 2nd 3rd and 4th metacarpal heads also increased. There is no evidence of an acute fracture. On the left: Moderate to severe asymmetric intra digital joint space narrowing is seen involving all digits. Small marginal osteophytes are seen in association with this finding throughout. These changes primarily affect the DIP joint of the 2nd digit and the PIP joint of the 5th digit. There is no acute fracture. Rather advanced appearing degenerative changes are seen involving the 1st carpometacarpal joint. IMPRESSION: Chronic changes seen bilaterally as described above. <Electronically signed by Santiago Kennedy > 12/07/20 [id number]
== END ==
LOC: M CLY 08:31
PROVIDERS: ATTEND Internal Medicine Rheumatology
DX: M19.041 Primary osteoarthritis, right hand (principal); M19.042 Primary osteoarthritis, left hand; M19.071 Primary osteoarthritis, right ankle and foot; M19.072 Primary osteoarthritis, left ankle and foot; M1A.09X0 Idiopathic chronic gout, multiple sites, without tophus (tophi); Z94.1 Heart transplant status

== ENCOUNTER → 2021-01-16 | Outpatient (REF) | payer MEDICARE, BC, OTHER ==
[2021-01-16 16:29] LABS: BASO % 0.5 % (0.0-1.0); EOS # 0.3 10^3/uL (0.0-0.5); EOS % 3.3 % (0.0-3.0); HEMATOCRIT 42.3 % (42.0-52.0); HEMOGLOBIN 13.1 g/dl (13.5-17.5); LYMPH # 2.9 10^3/uL (1.5-5.0); LYMPH % 34.7 % (24.0-44.0); MEAN CORPUSCULAR HEMOGLOBIN 30.7 pg (27.0-33.0); MEAN CORPUSCULAR VOLUME 99.1 fl (80.0-96.0); MONO % 11.6 % (2.0-8.0); NEUTROPHILS # 4.1 10^3/uL (1.5-8.5); NEUTROPHILS % 49.5 % (36.0-66.0); PLATELET COUNT, AUTOMATED 248 10^3/uL (150-450); RED BLOOD COUNT 4.27 10^6/uL (4.30-6.10); WHITE BLOOD COUNT 8.2 10^3/uL (4.0-10.0)
[2021-01-16 16:36] LABS: APPEARANCE, URINE CLEAR (CLEAR); BACTERIA, URINE AUTO NEGATIVE (NEGATIVE); BILIRUBIN, URINE AUTO NEGATIVE (NEGATIVE); BLOOD, URINE BLOOD 1+ (NEGATIVE); COLOR, URINE YELLOW (YELLOW); GLUCOSE, URINE (UA) AUTO NEGATIVE (NEGATIVE); KETONE, URINE AUTO NEGATIVE (NEGATIVE); LEUKOCYTE ESTERASE, URINE AUTO NEGATIVE (NEGATIVE); NITRITE, URINE AUTO NEGATIVE (NEGATIVE); PROTEIN, URINE AUTO NEGATIVE (NEGATIVE); RBC, URINE AUTO 1 /HPF (0-3); SPECIFIC GRAVITY URINE AUTO 1.018 (1.002-1.035); SQUAMOUS EPITHELIAL CELL UR AU 0 /HPF (0-6); UROBILINOGEN, URINE AUTO 0.2 mg/dL (0.0-2.0); WBC, URINE AUTO 0 /HPF (0-3)
[2021-01-16 16:58] LABS: MALB URINE SIEMENS 6.9 MG/L; MAU/CREAT RATIO 4.3 MCG/MG (0.0-30.0)
[2021-01-16 17:04] LABS: ALBUMIN 3.9 GM/DL (3.2-5.2); BILIRUBIN,TOTAL 0.5 MG/DL (0.2-1.0); CALCIUM LEVEL 8.9 MG/DL (8.8-10.2); CREATININE FOR GFR 1.63 MG/DL (0.70-1.30); GLOMERULAR FILTRATION RATE 44.2 (>42); MAGNESIUM LEVEL 2.2 MG/DL (1.8-2.4); POTASSIUM SERUM 4.5 MEQ/L (3.5-5.1); TOTAL PROTEIN 7.1 GM/DL (6.4-8.2)
== END ==
LOC: M LABDRAWC 11:25
PROVIDERS: ATTEND Nurse Practitioner Adult Health
DX: Z48.21 Encounter for aftercare following heart transplant (principal); Z79.899 Other long term (current) drug therapy; T86.20 Unspecified complication of heart transplant; I10 Essential (primary) hypertension

== ENCOUNTER 2021-02-26 14:30 | Outpatient (RCR) | payer MEDICARE, BC, OTHER | END 2021-02-27 | LOC: M PT 14:30 | PROVIDERS: ATTEND Family Medicine | DX: M54.41 Lumbago with sciatica, right side (principal); R29.898 Other symptoms and signs involving the musculoskeletal system ==

== ENCOUNTER 2021-03-07 13:46 | Outpatient (RCR) | payer MEDICARE, BC, OTHER | END 2021-03-29 | LOC: M PT 13:46 | PROVIDERS: ATTEND Family Medicine | DX: R29.898 Other symptoms and signs involving the musculoskeletal system (principal); M54.41 Lumbago with sciatica, right side ==

== ENCOUNTER → 2021-05-30 | Outpatient (REF) | payer MEDICARE, BC, OTHER | LOC: M LAB REF 14:30 | PROVIDERS: ATTEND Physician Assistant | DX: D04.39 Carcinoma in situ of skin of other parts of face (principal) ==

== ENCOUNTER → 2021-06-21 | Outpatient (REF) | payer MEDICARE, BC, OTHER ==
[2021-06-21 16:49] LABS: CALCIUM LEVEL 9.5 MG/DL (8.8-10.2); CREATININE FOR GFR 1.61 MG/DL (0.70-1.30); GLOMERULAR FILTRATION RATE 44.8 (>42); POTASSIUM SERUM 4.7 MEQ/L (3.5-5.1); THYROID STIMULATING HORMONE 1.63 uIU/ML (0.358-3.740); THYROXINE (T4) 8.6 UG/DL (4.5-12.0)
== END ==
LOC: M LABDRAWC 15:50
PROVIDERS: ATTEND Nurse Practitioner Adult Health
DX: R53.82 Chronic fatigue, unspecified (principal); Z94.1 Heart transplant status; Z79.899 Other long term (current) drug therapy

== ENCOUNTER → 2021-10-10 | Outpatient (REF) | payer MEDICARE, BC, OTHER ==
[2021-10-10 16:40] LABS: BASO % 0.4 % (0.0-1.0); EOS # 0.1 10^3/uL (0.0-0.5); HEMATOCRIT 43.1 % (42.0-52.0); HEMOGLOBIN 13.7 g/dl (13.5-17.5); LYMPH # 1.2 10^3/uL (1.5-5.0); LYMPH % 15.8 % (24.0-44.0); MEAN CORPUSCULAR HEMOGLOBIN 31.1 pg (27.0-33.0); MEAN CORPUSCULAR HGB CONC 31.8 g/dl (32.0-36.5); MEAN CORPUSCULAR VOLUME 97.7 fl (80.0-96.0); MONO # 0.8 10^3/uL (0.0-0.8); MONO % 10.5 % (2.0-8.0); NEUTROPHILS # 5.2 10^3/uL (1.5-8.5); NEUTROPHILS % 71.9 % (36.0-66.0); PLATELET COUNT, AUTOMATED 232 10^3/uL (150-450); RED BLOOD COUNT 4.41 10^6/uL (4.30-6.10); WHITE BLOOD COUNT 7.3 10^3/uL (4.0-10.0)
[2021-10-10 17:02] LABS: ALBUMIN 3.9 GM/DL (3.2-5.2); BILIRUBIN,TOTAL 0.3 MG/DL (0.2-1.0); C REACTIVE PROTEIN QUANTITATIV 0.3 MG/DL (0.00-0.30); CALCIUM LEVEL 9.2 MG/DL (8.8-10.2); CREATININE FOR GFR 2.07 MG/DL (0.70-1.30); GLOMERULAR FILTRATION RATE 33.5 (>42); POTASSIUM SERUM 4.4 MEQ/L (3.5-5.1); TOTAL PROTEIN 7.2 GM/DL (6.4-8.2); URIC ACID 8.2 MG/DL (3.5-7.2)
[2021-10-10 17:40] LABS: ERYTHROCYTE SEDIMENTATION RATE 6 mm/hr (0-20)
== END ==
LOC: M SFHCRHEU 15:07
PROVIDERS: ATTEND Internal Medicine Rheumatology
DX: M15.4 Erosive (osteo)arthritis (principal); M11.20 Other chondrocalcinosis, unspecified site; M1A.09X0 Idiopathic chronic gout, multiple sites, without tophus (tophi); Z79.52 Long term (current) use of systemic steroids

== ENCOUNTER → 2021-12-04 | Outpatient (CLI) | payer MEDICARE, BC, OTHER | LOC: M PLALAB 11:06 | PROVIDERS: ATTEND Physician Assistant | DX: Z12.5 Encounter for screening for malignant neoplasm of prostate (principal) ==

== ENCOUNTER → 2022-01-17 | Outpatient (REF) | payer MEDICARE, BC, OTHER ==
[2022-01-17 16:25] LABS: APPEARANCE, URINE CLEAR (CLEAR); BACTERIA, URINE AUTO NEGATIVE (NEGATIVE); BILIRUBIN, URINE AUTO NEGATIVE (NEGATIVE); BLOOD, URINE BLOOD 1+ (NEGATIVE); COLOR, URINE YELLOW (YELLOW); GLUCOSE, URINE (UA) AUTO NEGATIVE (NEGATIVE); KETONE, URINE AUTO NEGATIVE (NEGATIVE); LEUKOCYTE ESTERASE, URINE AUTO NEGATIVE (NEGATIVE); MUCUS, URINE SMALL (NEGATIVE); NITRITE, URINE AUTO NEGATIVE (NEGATIVE); PROTEIN, URINE AUTO NEGATIVE (NEGATIVE); RBC, URINE AUTO 2 /HPF (0-3); SPECIFIC GRAVITY URINE AUTO 1.016 (1.002-1.035); SQUAMOUS EPITHELIAL CELL UR AU 0 /HPF (0-6); UROBILINOGEN, URINE AUTO 0.2 mg/dL (0.0-2.0); WBC, URINE AUTO 1 /HPF (0-3)
== END ==
LOC: M SFHCCLAY 11:52
PROVIDERS: ATTEND Physician Assistant
DX: R35.0 Frequency of micturition (principal)

== ENCOUNTER → 2022-02-28 | Outpatient (REF) | payer MEDICARE, BC, OTHER ==
[2022-02-28 12:17] LABS: BASO % 0.3 % (0.0-1.0); EOS # 0.1 10^3/uL (0.0-0.5); EOS % 1.4 % (0.0-3.0); HEMATOCRIT 42.4 % (42.0-52.0); HEMOGLOBIN 12.8 g/dl (13.5-17.5); LYMPH # 1.7 10^3/uL (1.5-5.0); LYMPH % 18.5 % (24.0-44.0); MEAN CORPUSCULAR HEMOGLOBIN 29.8 pg (27.0-33.0); MEAN CORPUSCULAR HGB CONC 30.2 g/dl (32.0-36.5); MEAN CORPUSCULAR VOLUME 98.8 fl (80.0-96.0); MONO # 0.9 10^3/uL (0.0-0.8); MONO % 9.6 % (2.0-8.0); NEUTROPHILS # 6.4 10^3/uL (1.5-8.5); NEUTROPHILS % 69.8 % (36.0-66.0); PLATELET COUNT, AUTOMATED 252 10^3/uL (150-450); RED BLOOD COUNT 4.29 10^6/uL (4.30-6.10); WHITE BLOOD COUNT 9.1 10^3/uL (4.0-10.0)
[2022-02-28 12:59] LABS: TOTAL PROTEIN,RANDOM URINE 19.2 MG/DL (0.0-12.0)
[2022-02-28 13:01] LABS: ALBUMIN 3.6 GM/DL (3.2-5.2); BILIRUBIN,TOTAL 0.3 MG/DL (0.2-1.0); CALCIUM LEVEL 9.1 MG/DL (8.8-10.2); CREATININE FOR GFR 1.5 MG/DL (0.70-1.30); GLOMERULAR FILTRATION RATE 48.6 (>42); MAGNESIUM LEVEL 2.4 MG/DL (1.8-2.4); POTASSIUM SERUM 4.1 MEQ/L (3.5-5.1)
== END ==
LOC: M LABDRAWC 11:50
PROVIDERS: ATTEND Nurse Practitioner Adult Health
DX: Z94.1 Heart transplant status (principal)

== ENCOUNTER → 2022-04-03 | Outpatient (CLI) | payer MEDICARE, BC, OTHER ==
[2022-04-03 15:39] LABS: BASO % 0.4 % (0.0-1.0); EOS % 0.4 % (0.0-3.0); HEMATOCRIT 44.8 % (42.0-52.0); HEMOGLOBIN 13.9 g/dl (13.5-17.5); LYMPH % 12.8 % (24.0-44.0); MEAN CORPUSCULAR HEMOGLOBIN 30.9 pg (27.0-33.0); MEAN CORPUSCULAR VOLUME 99.6 fl (80.0-96.0); MONO # 0.5 10^3/uL (0.0-0.8); MONO % 6.9 % (2.0-8.0); NEUTROPHILS # 6.2 10^3/uL (1.5-8.5); PLATELET COUNT, AUTOMATED 227 10^3/uL (150-450); WHITE BLOOD COUNT 7.8 10^3/uL (4.0-10.0)
[2022-04-03 16:09] LABS: ALBUMIN 3.9 GM/DL (3.2-5.2); BILIRUBIN,TOTAL 0.5 MG/DL (0.2-1.0); CALCIUM LEVEL 9.2 MG/DL (8.8-10.2); CREATININE FOR GFR 1.6 MG/DL (0.70-1.30); GLOMERULAR FILTRATION RATE 45.1 (>42); POTASSIUM SERUM 4.7 MEQ/L (3.5-5.1); TOTAL PROTEIN 7.3 GM/DL (6.4-8.2)
== END ==
LOC: M PLALAB 12:42
PROVIDERS: ATTEND Physician Assistant
DX: M54.2 Cervicalgia (principal); K21.9 Gastro-esophageal reflux disease without esophagitis; Z98.1 Arthrodesis status

== ENCOUNTER → 2022-04-12 | Outpatient (REF) | payer MEDICARE, BC, OTHER ==
[2022-04-12 17:49] LABS: C REACTIVE PROTEIN QUANTITATIV < 0.30 MG/DL (0.00-0.30)
[2022-04-12 20:17] LABS: TOTAL 25(OH) VITAMIN D 37.3 NG/ML (30.0-100.0)
== END ==
LOC: M SFHCCLAY 10:39
PROVIDERS: ATTEND Internal Medicine Rheumatology
DX: M1A.09X0 Idiopathic chronic gout, multiple sites, without tophus (tophi) (principal)

== ENCOUNTER → 2022-04-25 | Outpatient (CLI) | payer MEDICARE, BC, OTHER | LOC: M RAD 07:26 | PROVIDERS: ATTEND Physician Assistant | DX: K21.9 Gastro-esophageal reflux disease without esophagitis (principal); R79.89 Other specified abnormal findings of blood chemistry; Z90.49 Acquired absence of other specified parts of digestive tract ==

== ENCOUNTER → 2022-12-18 | Outpatient (CLI) | payer MEDICARE, BC, OTHER | LOC: M CLY 08:06 | DX: M12.572 Traumatic arthropathy, left ankle and foot (principal) ==

== ENCOUNTER → 2023-01-23 | Outpatient (CLI) | payer MEDICARE, BC, OTHER | LOC: M CLY 13:51 | DX: M12.572 Traumatic arthropathy, left ankle and foot (principal) ==

== ENCOUNTER → 2023-02-05 | Outpatient (REF) | payer MEDICARE, BC, OTHER ==
[2023-02-05 11:44] LABS: BASO % 0.5 % (0.0-1.0); EOS # 0.2 10^3/uL (0.0-0.5); EOS % 2.8 % (0.0-3.0); HEMATOCRIT 46.5 % (42.0-52.0); HEMOGLOBIN 14.3 g/dl (13.5-17.5); LYMPH # 2.4 10^3/uL (1.5-5.0); LYMPH % 30.6 % (24.0-44.0); MEAN CORPUSCULAR HGB CONC 30.8 g/dl (32.0-36.5); MEAN CORPUSCULAR VOLUME 100.9 fl (80.0-96.0); MONO # 0.8 10^3/uL (0.0-0.8); MONO % 10.2 % (2.0-8.0); NEUTROPHILS # 4.3 10^3/uL (1.5-8.5); NEUTROPHILS % 55.6 % (36.0-66.0); PLATELET COUNT, AUTOMATED 258 10^3/uL (150-450); RED BLOOD COUNT 4.61 10^6/uL (4.30-6.10); WHITE BLOOD COUNT 7.7 10^3/uL (4.0-10.0)
[2023-02-05 11:50] LABS: ALBUMIN 3.4 G/DL (3.2-5.2); BILIRUBIN,TOTAL 0.5 MG/DL (0.3-1.2); CALCIUM LEVEL 8.7 MG/DL (8.3-10.6); CREATININE FOR GFR 1.61 MG/DL (0.70-1.30); GLOMERULAR FILTRATION RATE 44.6 (>42); MAGNESIUM LEVEL 1.7 MG/DL (1.8-2.4); POTASSIUM SERUM 4.2 MMOL/L (3.5-5.1); TOTAL PROTEIN 6.8 G/DL (5.7-8.2)
== END ==
LOC: M LABDRAWC 11:05
PROVIDERS: ATTEND Nurse Practitioner
DX: R94.4 Abnormal results of kidney function studies (principal); Z94.1 Heart transplant status

== ENCOUNTER → 2023-04-02 | Outpatient (REF) | payer MEDICARE, BC, OTHER ==
[2023-04-02 12:53] LABS: APPEARANCE, URINE CLEAR (CLEAR); BACTERIA, URINE AUTO NEGATIVE (NEGATIVE); BILIRUBIN, URINE AUTO NEGATIVE (NEGATIVE); BLOOD, URINE BLOOD 1+ (NEGATIVE); COLOR, URINE YELLOW (YELLOW); GLUCOSE, URINE (UA) AUTO NEGATIVE (NEGATIVE); KETONE, URINE AUTO NEGATIVE (NEGATIVE); LEUKOCYTE ESTERASE, URINE AUTO NEGATIVE (NEGATIVE); NITRITE, URINE AUTO NEGATIVE (NEGATIVE); PROTEIN, URINE AUTO NEGATIVE (NEGATIVE); RBC, URINE AUTO 1 /HPF (0-3); SPECIFIC GRAVITY URINE AUTO 1.017 (1.002-1.035); SQUAMOUS EPITHELIAL CELL UR AU 0 /HPF (0-6); UROBILINOGEN, URINE AUTO 0.2 mg/dL (0.0-2.0); WBC, URINE AUTO 0 /HPF (0-3)
[2023-04-02 12:58] LABS: BASO % 0.5 % (0.0-1.0); EOS # 0.2 10^3/uL (0.0-0.5); EOS % 2.2 % (0.0-3.0); HEMATOCRIT 44.4 % (42.0-52.0); HEMOGLOBIN 13.7 g/dl (13.5-17.5); LYMPH # 2.4 10^3/uL (1.5-5.0); LYMPH % 29.4 % (24.0-44.0); MEAN CORPUSCULAR HEMOGLOBIN 30.8 pg (27.0-33.0); MEAN CORPUSCULAR HGB CONC 30.9 g/dl (32.0-36.5); MEAN CORPUSCULAR VOLUME 99.8 fl (80.0-96.0); MONO % 12.6 % (2.0-8.0); NEUTROPHILS # 4.4 10^3/uL (1.5-8.5); NEUTROPHILS % 55.1 % (36.0-66.0); PLATELET COUNT, AUTOMATED 246 10^3/uL (150-450); RED BLOOD COUNT 4.45 10^6/uL (4.30-6.10); WHITE BLOOD COUNT 8.1 10^3/uL (4.0-10.0)
[2023-04-02 13:10] LABS: ALBUMIN 3.5 G/DL (3.2-5.2); BILIRUBIN,TOTAL 0.5 MG/DL (0.3-1.2); CALCIUM LEVEL 8.9 MG/DL (8.3-10.6); CHOLESTEROL RISK RATIO 3.48 (<5); CREATININE FOR GFR 1.53 MG/DL (0.70-1.30); GLOMERULAR FILTRATION RATE 47.3 (>42); HDL CHOLESTEROL 55.7 MG/DL (>40); LDL CHOLESTEROL 114.7 MG/DL (<100); MAGNESIUM LEVEL 1.9 MG/DL (1.8-2.4); NON-HDL-C 138.3 MG/DL; POTASSIUM SERUM 4.2 MMOL/L (3.5-5.1); TOTAL PROTEIN 6.7 G/DL (5.7-8.2)
[2023-04-02 13:19] LABS: CREATININE, URINE 135.8 MG/DL; MAU/CREAT RATIO 5.1 MCG/MG (0.0-30.0)
== END ==
LOC: M LABDRAWC 12:29
PROVIDERS: ATTEND Nurse Practitioner
DX: Z94.1 Heart transplant status (principal); E78.5 Hyperlipidemia, unspecified; E83.42 Hypomagnesemia

== ENCOUNTER → 2023-04-02 | Outpatient (CLI) | payer MEDICARE, BC, OTHER | LOC: M CLY 08:15 | PROVIDERS: ATTEND Orthopaedic Surgery Foot and Ankle Surgery | DX: M12.572 Traumatic arthropathy, left ankle and foot (principal) ==

== ENCOUNTER → 2023-04-14 | Outpatient (REF) | payer MEDICARE, BC, OTHER ==
[2023-04-14 17:50] LABS: HEMOGLOBIN A1c 6.4 % (4.0-6.0)
[2023-04-14 18:00] LABS: URIC ACID 6.9 MG/DL (3.7-9.2)
[2023-04-14 18:01] LABS: C REACTIVE PROTEIN QUANTITATIV < 0.40 MG/DL (<1.0)
[2023-04-14 18:03] LABS: IRON (FE) 123 UG/DL (65-175)
[2023-04-14 18:04] LABS: TOTAL T3 89.8 NG/DL (60.0-181.0)
[2023-04-14 18:05] LABS: FREE T4 1.31 NG/DL (0.89-1.76); THYROID STIMULATING HORMONE 1.446 uIU/ML (0.55-4.78)
[2023-04-17 23:08] LABS: ACETYLCHOLINE RCPTOR BINDING A < 0.03 nmol/L (0.00-0.24); CYCLIC CITRULLINATED PEPTIDE 7 units (0-19); TESTOSTERONE FREE (DIRECT) 1.7 pg/mL (6.6-18.1)
== END ==
LOC: M SFHCCLAY 10:03
PROVIDERS: ATTEND Family Medicine
DX: R53.83 Other fatigue (principal); M62.81 Muscle weakness (generalized); M1A.09X0 Idiopathic chronic gout, multiple sites, without tophus (tophi); M13.0 Polyarthritis, unspecified; R79.89 Other specified abnormal findings of blood chemistry; R73.03 Prediabetes; I10 Essential (primary) hypertension

== ENCOUNTER → 2023-05-08 | Outpatient (REF) | payer MEDICARE, BC, OTHER | LOC: M SFHCRHEU 15:31 | PROVIDERS: ATTEND Internal Medicine Rheumatology | DX: M15.4 Erosive (osteo)arthritis (principal); M11.20 Other chondrocalcinosis, unspecified site; M1A.09X0 Idiopathic chronic gout, multiple sites, without tophus (tophi); Z79.52 Long term (current) use of systemic steroids ==

== ENCOUNTER → 2023-11-03 | Outpatient (REF) | payer MEDICARE, BC, OTHER ==
[2023-11-03 12:29] LABS: BASO % 0.1 % (0.0-1.0); HEMATOCRIT 41.2 % (42.0-52.0); LYMPH # 0.9 10^3/uL (1.5-5.0); LYMPH % 9.9 % (24.0-44.0); MEAN CORPUSCULAR HGB CONC 31.6 g/dl (32.0-36.5); MEAN CORPUSCULAR VOLUME 98.3 fl (80.0-96.0); MONO # 0.5 10^3/uL (0.0-0.8); MONO % 5.1 % (2.0-8.0); NEUTROPHILS # 7.8 10^3/uL (1.5-8.5); PLATELET COUNT, AUTOMATED 239 10^3/uL (150-450); RED BLOOD COUNT 4.19 10^6/uL (4.30-6.10); WHITE BLOOD COUNT 9.2 10^3/uL (4.0-10.0)
[2023-11-03 12:30] LABS: ALBUMIN 3.1 G/DL (3.2-5.2); BILIRUBIN,TOTAL 0.6 MG/DL (0.3-1.2); CALCIUM LEVEL 8.9 MG/DL (8.3-10.6); CHOLESTEROL RISK RATIO 2.45 (<5); CREATININE FOR GFR 1.41 MG/DL (0.70-1.30); GLOMERULAR FILTRATION RATE 51.9 (>42); HDL CHOLESTEROL 72.9 MG/DL (>40); LDL CHOLESTEROL 93.1 MG/DL (<100); MAGNESIUM LEVEL 2.2 MG/DL (1.8-2.4); NON-HDL-C 106.1 MG/DL; POTASSIUM SERUM 4.5 MMOL/L (3.5-5.1); TOTAL PROTEIN 6.2 G/DL (5.7-8.2)
[2023-11-03 12:49] LABS: CREATININE, URINE 115.3 MG/DL
[2023-11-03 12:50] LABS: MAU/CREAT RATIO 10.4 MCG/MG (0.0-30.0)
[2023-11-05 20:08] LABS: SIROLIMUS (RAPAMUNE) LABCORP 4.7 ng/mL (3.0-20.0)
== END ==
LOC: M SFHCWAGY 10:49 → M LABDRAWC 10:49
PROVIDERS: ATTEND Nurse Practitioner
DX: Z94.1 Heart transplant status (principal); E78.5 Hyperlipidemia, unspecified; E83.42 Hypomagnesemia; I10 Essential (primary) hypertension; M15.4 Erosive (osteo)arthritis; M11.20 Other chondrocalcinosis, unspecified site; M1A.09X0 Idiopathic chronic gout, multiple sites, without tophus (tophi); Z79.52 Long term (current) use of systemic steroids

== ENCOUNTER → 2023-11-03 | Outpatient (REF) | payer MEDICARE, BC, OTHER ==
[2023-11-03 12:29] LABS: BASO % 0.1 % (0.0-1.0); CALCIUM LEVEL 8.9 MG/DL (8.3-10.6); CREATININE FOR GFR 1.43 MG/DL (0.70-1.30); HEMATOCRIT 41.1 % (42.0-52.0); HEMOGLOBIN 12.9 g/dl (13.5-17.5); LYMPH % 10.5 % (24.0-44.0); MEAN CORPUSCULAR HEMOGLOBIN 30.9 pg (27.0-33.0); MEAN CORPUSCULAR HGB CONC 31.4 g/dl (32.0-36.5); MEAN CORPUSCULAR VOLUME 98.3 fl (80.0-96.0); MONO # 0.5 10^3/uL (0.0-0.8); MONO % 5.5 % (2.0-8.0); NEUTROPHILS # 7.6 10^3/uL (1.5-8.5); NEUTROPHILS % 83.2 % (36.0-66.0); PLATELET COUNT, AUTOMATED 237 10^3/uL (150-450); POTASSIUM SERUM 4.5 MMOL/L (3.5-5.1); RED BLOOD COUNT 4.18 10^6/uL (4.30-6.10); WHITE BLOOD COUNT 9.2 10^3/uL (4.0-10.0)
[2023-11-03 12:32] LABS: C REACTIVE PROTEIN QUANTITATIV < 0.40 MG/DL (<1.0)
[2023-11-03 12:34] LABS: ALKALINE PHOSPHATASE 65 U/L (46-116); ALT/SGPT 40 U/L (7.0-40); AST/SGOT 39 U/L (<34); BILIRUBIN,TOTAL 0.6 MG/DL (0.3-1.2); BLOOD UREA NITROGEN 43 MG/DL (9-23); CALCIUM LEVEL 8.8 MG/DL (8.3-10.6); CARBON DIOXIDE LEVEL 31 MMOL/L (20-31); CHLORIDE LEVEL 105 MMOL/L (98-107); CREATININE FOR GFR 1.42 MG/DL (0.70-1.30); GLOMERULAR FILTRATION RATE 51.5 (>42); GLUCOSE, FASTING 118 MG/DL (74-106); POTASSIUM SERUM 4.5 MMOL/L (3.5-5.1); SODIUM LEVEL 143 MMOL/L (136-145); TOTAL PROTEIN 6.3 G/DL (5.7-8.2)
[2023-11-03 12:50] LABS: ERYTHROCYTE SEDIMENTATION RATE 8 mm/hr (0-20)
== END ==
LOC: M SFHCCLAY 08:09
PROVIDERS: ATTEND Family Medicine
DX: I10 Essential (primary) hypertension (principal); M15.4 Erosive (osteo)arthritis; M11.20 Other chondrocalcinosis, unspecified site; M1A.09X0 Idiopathic chronic gout, multiple sites, without tophus (tophi); Z79.52 Long term (current) use of systemic steroids

== ENCOUNTER → 2023-11-28 | Outpatient (REF) | payer MEDICARE, BC, OTHER ==
[2023-11-28 18:14] LABS: BASO % 0.3 % (0.0-1.0); EOS # 0.1 10^3/uL (0.0-0.5); EOS % 1.1 % (0.0-3.0); HEMATOCRIT 41.7 % (42.0-52.0); HEMOGLOBIN 12.9 g/dl (13.5-17.5); LYMPH # 1.2 10^3/uL (1.5-5.0); LYMPH % 15.2 % (24.0-44.0); MEAN CORPUSCULAR HEMOGLOBIN 31.3 pg (27.0-33.0); MEAN CORPUSCULAR HGB CONC 30.9 g/dl (32.0-36.5); MEAN CORPUSCULAR VOLUME 101.2 fl (80.0-96.0); MONO # 0.5 10^3/uL (0.0-0.8); MONO % 6.8 % (2.0-8.0); NEUTROPHILS # 6.1 10^3/uL (1.5-8.5); NEUTROPHILS % 76.1 % (36.0-66.0); PLATELET COUNT, AUTOMATED 221 10^3/uL (150-450); RED BLOOD COUNT 4.12 10^6/uL (4.30-6.10)
[2023-11-28 18:39] LABS: URIC ACID 6.7 MG/DL (3.7-9.2)
[2023-11-28 18:42] LABS: ALBUMIN 3.6 G/DL (3.2-5.2); BILIRUBIN,TOTAL 0.7 MG/DL (0.3-1.2); CALCIUM LEVEL 8.9 MG/DL (8.3-10.6); CREATININE FOR GFR 1.8 MG/DL (0.70-1.30); GLOMERULAR FILTRATION RATE 39.1 (>42); POTASSIUM SERUM 4.4 MMOL/L (3.5-5.1); TOTAL PROTEIN 6.5 G/DL (5.7-8.2)
== END ==
LOC: M SFHCCLAY 12:17
PROVIDERS: ATTEND Family Medicine
DX: M15.4 Erosive (osteo)arthritis (principal); M11.20 Other chondrocalcinosis, unspecified site; M1A.09X0 Idiopathic chronic gout, multiple sites, without tophus (tophi); Z79.52 Long term (current) use of systemic steroids

== ENCOUNTER → 2023-12-01 | Outpatient (REF) | payer MEDICARE, BC, OTHER | LOC: M SFHCDERM 17:20 | PROVIDERS: ATTEND Physician Assistant | DX: L57.0 Actinic keratosis (principal) ==

== ENCOUNTER 2023-12-22 13:28 | Outpatient (RCR) | payer MEDICARE, BC, OTHER | END 2023-12-28 | LOC: M PT 13:28 | PROVIDERS: ATTEND Surgery | DX: I89.0 Lymphedema, not elsewhere classified (principal) ==

== ENCOUNTER → 2024-01-08 | Outpatient (REF) | payer MEDICARE, BC, OTHER ==
[2024-01-08 19:53] LABS: ALBUMIN 3.5 G/DL (3.2-5.2); BILIRUBIN,TOTAL 0.4 MG/DL (0.3-1.2); CALCIUM LEVEL 8.8 MG/DL (8.3-10.6); CREATININE FOR GFR 1.72 MG/DL (0.70-1.30); GLOMERULAR FILTRATION RATE 41.3 (>42); POTASSIUM SERUM 4.2 MMOL/L (3.5-5.1)
== END ==
LOC: M LABDRAWC 16:57
PROVIDERS: ATTEND Nurse Practitioner
DX: Z94.1 Heart transplant status (principal)

== ENCOUNTER → 2024-01-28 | Outpatient (RCR) | payer MEDICARE, BC, OTHER | LOC: M PT 01-07 12:39 | PROVIDERS: ATTEND Surgery | DX: I89.0 Lymphedema, not elsewhere classified (principal) ==

== ENCOUNTER → 2024-01-29 | Outpatient (REF) | payer MEDICARE, BC, OTHER ==
[2024-01-29 17:40] LABS: BASO % 0.3 % (0.0-1.0); EOS # 0.1 10^3/uL (0.0-0.5); EOS % 0.8 % (0.0-3.0); HEMATOCRIT 42.8 % (42.0-52.0); LYMPH # 1.1 10^3/uL (1.5-5.0); LYMPH % 12.8 % (24.0-44.0); MEAN CORPUSCULAR HEMOGLOBIN 31.3 pg (27.0-33.0); MEAN CORPUSCULAR HGB CONC 30.4 g/dl (32.0-36.5); MEAN CORPUSCULAR VOLUME 102.9 fl (80.0-96.0); MONO # 0.5 10^3/uL (0.0-0.8); MONO % 5.6 % (2.0-8.0); PLATELET COUNT, AUTOMATED 253 10^3/uL (150-450); RED BLOOD COUNT 4.16 10^6/uL (4.30-6.10); WHITE BLOOD COUNT 8.7 10^3/uL (4.0-10.0)
[2024-01-29 18:08] LABS: ALBUMIN 3.7 G/DL (3.2-5.2); BILIRUBIN,TOTAL 0.5 MG/DL (0.3-1.2); CALCIUM LEVEL 9.3 MG/DL (8.3-10.6); CREATININE FOR GFR 1.59 MG/DL (0.70-1.30); GLOMERULAR FILTRATION RATE 45.2 (>42); POTASSIUM SERUM 4.1 MMOL/L (3.5-5.1); TOTAL PROTEIN 6.5 G/DL (5.7-8.2)
[2024-01-29 18:09] LABS: THYROID STIMULATING HORMONE 3.213 uIU/ML (0.55-4.78)
== END ==
LOC: M SFHCCLAY 14:35
PROVIDERS: ATTEND Physician Assistant
DX: R53.1 Weakness (principal); R39.11 Hesitancy of micturition; R06.09 Other forms of dyspnea

== ENCOUNTER 2024-02-24 10:40 | Outpatient (RCR) | payer MEDICARE, BC, OTHER | END 2024-02-28 | LOC: M PT 10:40 | PROVIDERS: ATTEND Surgery | DX: I89.0 Lymphedema, not elsewhere classified (principal) ==

== ENCOUNTER → 2024-03-09 | Outpatient (REF) | payer MEDICARE, BC, OTHER ==
[2024-03-09 18:32] LABS: BASO % 0.4 % (0.0-1.0); EOS # 0.3 10^3/uL (0.0-0.5); EOS % 2.8 % (0.0-3.0); HEMATOCRIT 42.7 % (42.0-52.0); HEMOGLOBIN 13.1 g/dl (13.5-17.5); LYMPH # 2.8 10^3/uL (1.5-5.0); MEAN CORPUSCULAR HEMOGLOBIN 31.6 pg (27.0-33.0); MEAN CORPUSCULAR HGB CONC 30.7 g/dl (32.0-36.5); MEAN CORPUSCULAR VOLUME 103.1 fl (80.0-96.0); MONO % 9.9 % (2.0-8.0); NEUTROPHILS # 5.9 10^3/uL (1.5-8.5); NEUTROPHILS % 58.2 % (36.0-66.0); PLATELET COUNT, AUTOMATED 221 10^3/uL (150-450); RED BLOOD COUNT 4.14 10^6/uL (4.30-6.10); WHITE BLOOD COUNT 10.1 10^3/uL (4.0-10.0)
[2024-03-09 18:59] LABS: ALBUMIN 3.6 G/DL (3.2-5.2); BILIRUBIN,TOTAL 0.3 MG/DL (0.3-1.2); CALCIUM LEVEL 9.7 MG/DL (8.3-10.6); CREATININE FOR GFR 1.68 MG/DL (0.70-1.30); GLOMERULAR FILTRATION RATE 42.4 (>42); POTASSIUM SERUM 4.8 MMOL/L (3.5-5.1); THYROID STIMULATING HORMONE 3.941 uIU/ML (0.55-4.78); TOTAL PROTEIN 6.7 G/DL (5.7-8.2)
[2024-03-09 19:01] LABS: FREE T4 1.36 NG/DL (0.89-1.76)
[2024-03-09 19:13] LABS: HEMOGLOBIN A1c 5.9 % (4.0-6.0)
[2024-03-12 23:46] LABS: FK 506 (TACROLIMUS) 5.7 mcg/L (5.0-20.0)
[2024-03-15 15:27] LABS: TESTOSTERONE FREE (DIRECT) 5.1 pg/mL (30.0-135.0)
== END ==
LOC: M SFHCCLAY 09:22
PROVIDERS: ATTEND Family Medicine
DX: I12.9 Hypertensive chronic kidney disease with stage 1 through stage 4 chronic kidney disease, or unspecified chronic kidney disease (principal); Z94.1 Heart transplant status; R79.89 Other specified abnormal findings of blood chemistry; R11.0 Nausea

== ENCOUNTER → 2024-03-09 | Outpatient (CLI) | payer MEDICARE, BC, OTHER | LOC: M CLY 09:40 | PROVIDERS: ATTEND Family Medicine | DX: R11.0 Nausea (principal); K59.00 Constipation, unspecified; I51.7 Cardiomegaly; Z95.810 Presence of automatic (implantable) cardiac defibrillator ==

== ENCOUNTER → 2024-03-12 | Outpatient (REF) | payer MEDICARE, BC, OTHER | LOC: M SFHCCLAY 16:43 | PROVIDERS: ATTEND Family Medicine | DX: R11.0 Nausea (principal) ==

== ENCOUNTER 2024-03-26 13:27 | Outpatient (RCR) | payer MEDICARE, BC, OTHER | END 2024-03-29 | LOC: M PT 13:27 | PROVIDERS: ATTEND Surgery | DX: I89.0 Lymphedema, not elsewhere classified (principal) ==

== ENCOUNTER → 2024-04-28 | Outpatient (CLI) | payer MEDICARE, BC, OTHER ==
[~2024-04-28] MED LIST: GASTROGRAFIN SOLUTION 30ML As Ordered ONE
== END ==
LOC: M RAD 13:16
PROVIDERS: ATTEND Family Medicine
DX: R10.84 Generalized abdominal pain (principal); J98.11 Atelectasis; Z95.0 Presence of cardiac pacemaker; K44.9 Diaphragmatic hernia without obstruction or gangrene; I70.0 Atherosclerosis of aorta; K40.20 Bilateral inguinal hernia, without obstruction or gangrene, not specified as recurrent; K57.90 Diverticulosis of intestine, part unspecified, without perforation or abscess without bleeding
CPT/HCPCS: 74176; Q9963

== ENCOUNTER → 2024-05-11 | Outpatient (REF) | payer MEDICARE, BC, OTHER ==
[2024-05-11 18:31] LABS: BASO # 0.1 10^3/uL (0.0-0.2); BASO % 0.4 % (0.0-1.0); EOS # 0.7 10^3/uL (0.0-0.5); HEMATOCRIT 42.6 % (42.0-52.0); LYMPH % 16.8 % (24.0-44.0); MEAN CORPUSCULAR HEMOGLOBIN 31.8 pg (27.0-33.0); MEAN CORPUSCULAR HGB CONC 30.5 g/dl (32.0-36.5); MEAN CORPUSCULAR VOLUME 104.2 fl (80.0-96.0); MONO # 1.2 10^3/uL (0.0-0.8); MONO % 9.7 % (2.0-8.0); NEUTROPHILS # 7.9 10^3/uL (1.5-8.5); NEUTROPHILS % 66.4 % (36.0-66.0); PLATELET COUNT, AUTOMATED 234 10^3/uL (150-450); RED BLOOD COUNT 4.09 10^6/uL (4.30-6.10); WHITE BLOOD COUNT 11.8 10^3/uL (4.0-10.0)
[2024-05-11 18:52] LABS: ERYTHROCYTE SEDIMENTATION RATE 41 mm/hr (0-20)
[2024-05-11 18:59] LABS: C REACTIVE PROTEIN QUANTITATIV 0.7 MG/DL (<1.0)
[2024-05-11 19:01] LABS: ALBUMIN 3.4 G/DL (3.2-5.2); BILIRUBIN,TOTAL 0.3 MG/DL (0.3-1.2); CALCIUM LEVEL 9.3 MG/DL (8.3-10.6); CREATININE FOR GFR 1.47 MG/DL (0.70-1.30); GLOMERULAR FILTRATION RATE 49.3 (>42)
[2024-05-11 19:03] LABS: URIC ACID 7.1 MG/DL (3.7-9.2)
== END ==
LOC: M SFHCCLAY 11:30
PROVIDERS: ATTEND Family Medicine
DX: M1A.09X0 Idiopathic chronic gout, multiple sites, without tophus (tophi) (principal); M11.20 Other chondrocalcinosis, unspecified site; M15.4 Erosive (osteo)arthritis; Z79.52 Long term (current) use of systemic steroids

== ENCOUNTER → 2024-10-25 | Outpatient (REF) | payer MEDICARE, BC, OTHER | LOC: M SFHCDERM 17:48 | PROVIDERS: ATTEND Physician Assistant | DX: D48.9 Neoplasm of uncertain behavior, unspecified (principal) ==

== ENCOUNTER → 2024-12-29 | Outpatient (REF) | payer MEDICARE, BC, OTHER ==
[2024-12-29 19:03] LABS: ALT/SGPT 16.0 U/L (7.0-40); AST/SGOT 30.0 U/L (<34); CALCIUM LEVEL 8.8 MG/DL (8.3-10.6); CARBON DIOXIDE LEVEL 25.0 MMOL/L (20-31); CHLORIDE LEVEL 106.0 MMOL/L (98-107); CREATININE FOR GFR 2.08 MG/DL (0.70-1.30); GLOMERULAR FILTRATION RATE 32.0 (>42); POTASSIUM SERUM 4.8 MMOL/L (3.5-5.1); SODIUM LEVEL 144.0 MMOL/L (136-145)
== END ==
LOC: M SFHCCLAY 15:07
PROVIDERS: ATTEND Family Medicine
DX: I10 Essential (primary) hypertension (principal)

== ENCOUNTER → 2025-01-12 | Outpatient (REF) | payer MEDICARE, BC, OTHER ==
[2025-01-12 13:50] LABS: ALT/SGPT 17.0 U/L (7.0-40); AST/SGOT 27.0 U/L (<34); CALCIUM LEVEL 9.0 MG/DL (8.3-10.6); CARBON DIOXIDE LEVEL 26.0 MMOL/L (20-31); CHLORIDE LEVEL 109.0 MMOL/L (98-107); CREATININE FOR GFR 2.1 MG/DL (0.70-1.30); GLOMERULAR FILTRATION RATE 31.6 (>42); MAGNESIUM LEVEL 2.0 MG/DL (1.8-2.4); POTASSIUM SERUM 3.9 MMOL/L (3.5-5.1); SODIUM LEVEL 146.0 MMOL/L (136-145)
[2025-01-12 14:07] LABS: BASO # 0.1 10^3/uL (0.0-0.2); BASO % 0.6 % (0.0-1.0); EOS # 0.2 10^3/uL (0.0-0.5); EOS % 2.7 % (0.0-3.0); LYMPH # 2.8 10^3/uL (1.5-5.0); LYMPH % 32.6 % (24.0-44.0); MONO # 0.8 10^3/uL (0.0-0.8); MONO % 8.8 % (2.0-8.0); NEUTROPHILS # 4.7 10^3/uL (1.5-8.5); NEUTROPHILS % 54.9 % (36.0-66.0); PLATELET COUNT, AUTOMATED 227 10^3/uL (150-450)
== END ==
LOC: M LABDRAWC 12:17
PROVIDERS: ATTEND Registered Nurse Critical Care Medicine
DX: E83.42 Hypomagnesemia (principal); Z94.1 Heart transplant status

== ENCOUNTER → 2025-03-14 | Outpatient (REF) | payer MEDICARE, BC, OTHER ==
[2025-03-14 18:38] LABS: ALT/SGPT 24.0 U/L (7.0-40); AST/SGOT 39.0 U/L (<34); BASO # 0.1 10^3/uL (0.0-0.2); BASO % 0.6 % (0.0-1.0); CALCIUM LEVEL 9.0 MG/DL (8.3-10.6); CARBON DIOXIDE LEVEL 25.0 MMOL/L (20-31); CHLORIDE LEVEL 109.0 MMOL/L (98-107); CREATININE FOR GFR 1.83 MG/DL (0.70-1.30); EOS # 0.3 10^3/uL (0.0-0.5); EOS % 3.3 % (0.0-3.0); GLOMERULAR FILTRATION RATE 37.3 (>42); IRON (FE) 112.0 UG/DL (65-175); LYMPH # 2.0 10^3/uL (1.5-5.0); LYMPH % 21.3 % (24.0-44.0); MONO # 0.8 10^3/uL (0.0-0.8); MONO % 8.0 % (2.0-8.0); NEUTROPHILS # 6.3 10^3/uL (1.5-8.5); NEUTROPHILS % 66.2 % (36.0-66.0); PLATELET COUNT, AUTOMATED 250 10^3/uL (150-450); POTASSIUM SERUM 4.5 MMOL/L (3.5-5.1); SODIUM LEVEL 143.0 MMOL/L (136-145)
[2025-03-14 19:26] LABS: ESTIMATED AVERAGE GLUCOSE 128.0 MG/DL (60-110)
== END ==
LOC: M SFHCCLAY 10:12
PROVIDERS: ATTEND Family Medicine
DX: I10 Essential (primary) hypertension (principal); N18.32 Chronic kidney disease, stage 3b; M1A.09X0 Idiopathic chronic gout, multiple sites, without tophus (tophi)

== ENCOUNTER → 2025-04-01 | Outpatient (CLI) | payer MEDICARE, BC, OTHER | LOC: M CARPUL 15:18 | PROVIDERS: ATTEND Family Medicine | DX: Z94.1 Heart transplant status (principal); I36.0 Nonrheumatic tricuspid (valve) stenosis; I31.39 Other pericardial effusion (noninflammatory) ==

== ENCOUNTER → 2025-05-16 | Outpatient (REF) | payer MEDICARE, BC, OTHER ==
[2025-05-16 13:00] LABS: CREATININE, URINE 143.5 MG/DL
[2025-05-16 13:01] LABS: MALB URINE SIEMENS < 3.0 MG/L
[2025-05-16 13:21] LABS: ALT/SGPT 21.0 U/L (7.0-40); AST/SGOT 31.0 U/L (<34); CALCIUM LEVEL 8.7 MG/DL (8.3-10.6); CARBON DIOXIDE LEVEL 26.0 MMOL/L (20-31); CHLORIDE LEVEL 109.0 MMOL/L (98-107); CHOLESTEROL LEVEL 183.0 MG/DL (<200); CHOLESTEROL RISK RATIO 4.13 (<5); CREATININE FOR GFR 1.87 MG/DL (0.70-1.30); GLOMERULAR FILTRATION RATE 36.1 (>42); LDL CHOLESTEROL 94.9 MG/DL (<100); MAGNESIUM LEVEL 2.1 MG/DL (1.8-2.4); NON-HDL-C 138.7 MG/DL; POTASSIUM SERUM 4.2 MMOL/L (3.5-5.1); SODIUM LEVEL 144.0 MMOL/L (136-145); TRIGLYCERIDES LEVEL 219.0 MG/DL (<150)
[2025-05-16 13:34] LABS: BASO # 0.1 10^3/uL (0.0-0.2); BASO % 0.7 % (0.0-1.0); EOS # 0.4 10^3/uL (0.0-0.5); EOS % 4.7 % (0.0-3.0); LYMPH # 2.7 10^3/uL (1.5-5.0); LYMPH % 35.6 % (24.0-44.0); MONO # 0.8 10^3/uL (0.0-0.8); MONO % 9.9 % (2.0-8.0); NEUTROPHILS # 3.7 10^3/uL (1.5-8.5); NEUTROPHILS % 48.4 % (36.0-66.0); PLATELET COUNT, AUTOMATED 204 10^3/uL (150-450)
[2025-05-18 12:37] LABS: FK 506 (TACROLIMUS) 3.6 mcg/L (5.0-20.0)
[2025-05-18 19:22] LABS: SIROLIMUS (RAPAMUNE) 8.2 mcg/L (3.0-18.0)
== END ==
LOC: M LABDRAWC 11:58
PROVIDERS: ATTEND Nurse Practitioner Family
DX: Z29.89 Encounter for other specified prophylactic measures (principal); Z94.1 Heart transplant status; E78.5 Hyperlipidemia, unspecified; E83.42 Hypomagnesemia